=== PATIENT | male | born 1950 | race Caucasian/White ===

== ENCOUNTER 2019-07-16 14:11 | Outpatient (CLI) | payer BC, SELFPAY ==
[2019-07-16 15:35] LABS: Basophils Absolute Auto 0.1 K/mm3 (0.0-0.1); Eosinophils Absolute Auto 0.3 K/mm3 (0-0.3); Eosinophils Percent Auto 4.3 % (0-4.4); Hematocrit 44.9 % (42.0-52.0); Hemoglobin 14.8 g/dL (14.0-18.0); Immature Granulocyte Absolute 0.02 K/mm3 (0.00-0.031); Immature Granulocyte Percent A 0.3 % (0-0.5); Lymphocytes Absolute Auto 2.66 K/mm3 (0.9-3.2); Lymphocytes Percent Auto 33.6 % (18.3-44.2); Mean Corpuscular Hemoglobin 28.5 pg (26-34); Mean Corpuscular Volume 86.5 fl (80-100); Mean Platelet Volume 10.3 fl (7.4-10.4); Monocytes Absolute Auto 0.6 K/mm3 (0.1-0.6); Monocytes Percent Auto 7.7 % (2.6-8.5); Neutrophils Absolute Auto 4.2 K/mm3 (1.3-6.7); Neutrophils Percent Auto 53.1 % (45.5-73.1); Platelet Count Result 262 k/mm3 (150-375); Red Blood Count 5.19 M/mm3 (4.6-6.20); Red Cell Distribution Width 13.8 % (11.5-14.5); White Blood Count 7.9 K/mm3 (4.5-10.0)
[2019-07-16 15:44] LABS: Alanine Aminotransferase 42 U/L (4-50); Albumin Level 4.8 g/dL (3.5-5.1); Alkaline Phosphatase 79 U/L (38-126); Aspartate Amino Transferase 48 U/L (17-59); Bilirubin,Total 0.5 mg/dL (0.2-1.3); Blood Urea Nitrogen 17 mg/dL (9-20); Calcium 9.8 mg/dL (8.4-10.2); Carbon Dioxide 32 mmol/L (22-30); Chloride 99 mmol/L (98-107); Estimated Glomerular Filt Rate > 60; Glucose 88 mg/dL (75-110); Potassium 3.8 mmol/L (3.4-5.0); Sodium 142 mmol/L (137-145)
[2019-07-16 16:15] LABS: Prostate Specific Antigen 3.5 ng/mL (< OR = 4.0)
== END 2019-07-16 14:12 | disposition home or self-care (01) ==
PROVIDERS: PCP Family Medicine; Visit Provider Family Medicine
DX: I10 Essential (primary) hypertension (principal); E78.5 Hyperlipidemia, unspecified; I25.10 Atherosclerotic heart disease of native coronary artery without angina pectoris; Z12.5 Encounter for screening for malignant neoplasm of prostate
CPT/HCPCS: 36415; 80053; 84153; 84443; 85025; G0103

== ENCOUNTER 2020-01-06 00:16 | Outpatient (CLI) | payer BC, SELFPAY ==
[2020-01-06 16:41] LABS: SARS-CoV-2 RNA PCR Negative
== END 2020-01-06 00:17 | disposition home or self-care (01) ==
LOC: ANHCOVIDDT 00:17
PROVIDERS: PCP Family Medicine; Visit Provider Internal Medicine Cardiovascular Disease
DX: Z01.812 Encounter for preprocedural laboratory examination (principal); Z20.828 Contact with and (suspected) exposure to other viral communicable diseases
CPT/HCPCS: 87635; C9803; U0003

== ENCOUNTER 2020-01-08 05:15 | Day surgery (SDC) | payer BC, SELFPAY ==
[2020-01-06 16:11] VITALS: BMI 31.8
[2020-01-08] VITALS (8 sets, daily range): BP systolic 106–136; BP diastolic 61–89; PULSE 50–66; RESP 14–17; O2SAT 94–99; BMI 31.8
[2020-01-08 07:20] LABS: Basophils Absolute Auto 0.1 K/mm3 (0.0-0.1); Basophils Percent Auto 0.8 % (0.2-1.2); Eosinophils Absolute Auto 0.4 K/mm3 (0-0.3); Eosinophils Percent Auto 6.1 % (0-4.4); Hematocrit 43.7 % (42.0-52.0); Hemoglobin 14.4 g/dL (14.0-18.0); Immature Granulocyte Absolute 0.02 K/mm3 (0.00-0.031); Immature Granulocyte Percent A 0.3 % (0-0.5); Lymphocytes Absolute Auto 2.47 K/mm3 (0.9-3.2); Lymphocytes Percent Auto 37.4 % (18.3-44.2); Mean Corpuscular Hemoglobin 27.8 pg (26-34); Mean Corpuscular Volume 84.4 fl (80-100); Monocytes Absolute Auto 0.5 K/mm3 (0.1-0.6); Monocytes Percent Auto 7.9 % (2.6-8.5); Neutrophils Absolute Auto 3.1 K/mm3 (1.3-6.7); Neutrophils Percent Auto 47.5 % (45.5-73.1); Platelet Count Result 229 k/mm3 (150-375); Red Blood Count 5.18 M/mm3 (4.6-6.20); Red Cell Distribution Width 13.7 % (11.5-14.5); White Blood Count 6.6 K/mm3 (4.5-10.0)
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
[2020-01-08 07:31] LABS: Prothrombin Time 12.6 Seconds (11.1-14.7)
[2020-01-08 07:32] LABS: Blood Urea Nitrogen 18 mg/dL (9-20); Calcium 9.3 mg/dL (8.4-10.2); Carbon Dioxide 29 mmol/L (22-30); Chloride 102 mmol/L (98-107); Estimated CRCL calculation 69 ml/min; Estimated Glomerular Filt Rate > 60; Glucose 101 mg/dL (75-110); Potassium 4.1 mmol/L (3.4-5.0); Sodium 138 mmol/L (137-145)
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
--- NOTE | 2020-01-08 09:37 | WPDCARDPROC ---
Cardiac Cath Procedure Note Date of procedure:: 01/10/20 Performing physician:: Heavenly Mir MD Indication:: History of CAD insert Brief clinical history:: History of CAD an RCA stent in 2013 for ACS. Moderate disease of the OM1 was noted at that time. The patient has had progressive PATTON and exertional presyncope. He had a small area of mild to moderate inferolateral and apical lateral ischemia on a stress test recently. No typical anginal pain. Her for cardiac catheterization. Procedure Procedure performed:: PROCEDURE PERFORMED: 1. Left heart catheterization 2. Selective coronary angiography 3. Left ventriculography Estimated blood loss:: 5 cc Procedure note:: SITE: Left femoral artery ANESTHESIA TYPE: Conscious Sedation, 1% Lidocaine Local Anesthesia Conscious sedation: Assessment: The patient has no history of anesthesia problems. The patient's oropharynx is clear. The patient was deemed to be a good candidate for conscious sedation. The patient had continuous hemodynamic monitoring during the procedure. Start time: 908 Completion time: 928 Total conscious sedation time: 20 minutes Medications: Versed 2 mg IV push Trained observer: Emeka Root RN Outcome: The patient tolerated the procedure well with no complications. CATHETERS: 1. 5-German arterial sheath 2. 5-German 4 cm left Elvin 3. 5-German 3D RC 4. 5-German pigtail PROCEDURE: After informed consent, the patient was brought to the laborer shaft sinking, and the left femoral area was prepped and draped in usual fashion. The right femoral artery was anesthetized, then punctured and cannulated with the arterial sheath. Selective coronary angiography was performed with the coronary catheters in multiple projections. These were withdrawn. The pigtail catheter was then advanced into the central circulation and left ventricle for pressure measurements and left ventriculography, which was performed in the SETH projection with30 cc's of contrast. Left heart pullback was performed, and the pigtail catheter was withdrawn. Angiography of the right common femoral artery was performed and the sheath was in suitable position for a vascular closure device. Angio-Seal was applied,the arterial sheath was removed and hemostasis obtained using local pressure. The patient tolerated the procedure well with no complications. PRESSURES: Post angiographic aortic pressure was 110/60 and LV was 110 / 10 mmHg. LEFT CORONARY ARTERY: The left main was patent. There is some mild calcification of the proximal Left anterior descending and mild luminal irregularities noted. Otherwise the Left anterior descending was widely patent. The circumflex gave rise to a high OM1 which bifurcated very quickly after the origin. The ostium of the vessel had a 60-70% stenosis. The remainder of the circumflex is free of significant disease. RIGHT CORONARY ARTERY: The large dominant right coronary artery had a patent stent in the proximal segment. There was a mild luminal irregularity prior to the stent. The remainder of the vessel is free of disease. LEFT VENTRICULOGRAM: Normal left ventricular systolic function, EF 70% No mitral regurgitation The aorta was noted to be mildly tortuous with mild dilatation of the ascending aorta Findings:: 60-70% stenosis of the ostium of the OM1 which bifurcated proximally. This would be a difficult area for angioplasty/stent. Patent stent in the proximal RCA Mild luminal irregularities of the proximal RCA and Left anterior descending Nnormal left ventricular systolic function, EF 70% Conclusion:: Recommend continuing medical therapy for coronary disease. Isosorbide mononitrate added. Also may look for other causes of the patient's exertional dyspnea and presyncope (exertional hypoxia?)
--- NOTE | 2020-01-08 10:13 | SUR.PHASEII ---
0945-pt has returned from the [facility] after an LHC. Angioseal in place. No evidence of bleeding or hematoma noted. Groin soft and non-tender. Strong right pedal pulse noted. Will continue to monitor.
--- NOTE | 2020-01-08 12:31 | SUR.PHASEII ---
1220-pt given D/C orders and instructions. Questions answered and verbalized understanding. AOx4. Groin soft and non-tender, no evidence of bleeding or hematoma noted. Strong right pedal pulse noted. Taken via wheelchair to waiting vehicle. No distress noted or verbalized at time of departure.
== END 2020-01-08 12:25 | disposition home or self-care (01) ==
PROVIDERS: PCP Family Medicine; Visit Provider Internal Medicine Cardiovascular Disease
PROC: 4A023N7 Measurement of Cardiac Sampling and Pressure, Left Heart, Percutaneous Approach (ICD-10-PCS; CPT 93452; principal; 2020-01-08 08:30)
DX: I25.10 Atherosclerotic heart disease of native coronary artery without angina pectoris (principal); I77.819 Aortic ectasia, unspecified site; R94.39 Abnormal result of other cardiovascular function study; R06.09 Other forms of dyspnea; Z95.5 Presence of coronary angioplasty implant and graft; E78.5 Hyperlipidemia, unspecified; I10 Essential (primary) hypertension; I25.2 Old myocardial infarction; Z79.82 Long term (current) use of aspirin
CPT/HCPCS: 36415; 80048; 85025; 85610; 93458; C1760; C1887; C1894; G0269; J1644; J2250; J3010; J7040

== ENCOUNTER 2020-02-18 08:48 | Outpatient (CLI) | payer BC, SELFPAY ==
--- NOTE | ~2020-02-18 | XR_ITS ---
XR chest 2V 02/18/2020 09:14 Indication: Dyspnea with exertion. Procedure: 2 view chest Comparison: 05/07/2015 Findings: Bibasilar atelectasis. Heart size normal. No focal pneumonia, edema, pleural effusion or pn eumothorax. Impression: 1: Bibasilar atelectasis. Reviewed, dictated and finalized at location B. Impression: 1: Bibasilar atelectasis.
--- NOTE | 2020-02-20 10:55 | WPDPFTINT ---
PFT Interpretation PFT Interpretation: DOS: 02/18/2020 REQUESTING: Sara Jules NP REASON FOR TESTING: Dyspnea on exertion PULMONARY FUNCTION TESTS Results are reproducible and reliable. Spirometry: FEV1 77%, 2.19 L, mildly reduced. FVC 69%, mildly reduced. FEV1% ratio is 75%, normal. No bronchodilator was given. Lung volumes: Total lung capacity 76%, mildly reduced, consistent with restriction. Residual volume 65%, normal. Normal RV/TLC ratio. No air trapping. Airway resistance increased 192%. The slow vital capacity is 74% versus 69% forced vital capacity. This is a mild difference between these two values which suggests dynamic airway obstruction. Diffusion: DLCO mildly reduced 65%. Flow volume loop: Overall small size with scooping of the expiratory limb. IMPRESSION: Mild restrictive pattern based on reduced TLC. There is a possibility of mild obstruction based on slow vital capacity being larger than forced vital capacity. This is difficult to confirm as restriction can mask obstruction. Mild diffusion impairment. No bronchodilator was given. No prior studies for comparison. Lucia Pagan MD
== END 2020-02-18 08:49 | disposition home or self-care (01) ==
PROVIDERS: PCP Family Medicine; Visit Provider Nurse Practitioner Adult Health
DX: R06.00 Dyspnea, unspecified (principal); R94.2 Abnormal results of pulmonary function studies; R91.8 Other nonspecific abnormal finding of lung field
CPT/HCPCS: 71046; 94375; 94726; 94729

== ENCOUNTER 2020-09-18 07:09 | Outpatient (CLI) | payer BC, SELFPAY ==
[2020-09-18 07:41] LABS: Cholesterol 122 mg/dL (0-200); HDL Direct 28 mg/dL; Triglycerides 174 mg/dL (<150)
[2020-09-18 07:52] LABS: LDL Cholesterol Direct 61 mg/dL
[2020-09-18 08:12] LABS: Prostate Specific Antigen 3.6 ng/mL (< OR = 4.0)
[2020-09-18 08:47] LABS: Folic Acid > 20.0 ng/mL (2.76->20)
== END 2020-09-18 07:10 | disposition home or self-care (01) ==
PROVIDERS: PCP Physician Assistant; Visit Provider Physician Assistant
DX: E78.2 Mixed hyperlipidemia (principal); Z12.5 Encounter for screening for malignant neoplasm of prostate; I10 Essential (primary) hypertension
CPT/HCPCS: 36415; 80061; 82607; 82746; 84153; 84443; G0103

== ENCOUNTER 2021-03-25 12:47 | Outpatient (CLI) | payer BC, SELFPAY ==
--- NOTE | ~2021-03-25 | XR_ITS ---
XR abdomen/kub 1V 03/25/2021 13:03 INDICATION: Abdominal pain TECHNIQUE: KUB COMPARISON: Comparison to multiple prior studies sequentially, with oldest reviewed study dated 04/19. FINDINGS: No evidence of bowel obstruction. The psoas shadows are intact. No visceromegaly is detecte d. Status post bilateral total hip arthroplasty. There is severe degenerative disc disease throughout the lumbar and lumbosacral spine. The lung bases appear clear. There are bilateral total hip arthroplasties. There is moderate lumbar s pondylosis. IMPRESSION: Nonspecific abdomen Reviewed, dictated and finalized at location A. IMPRESSION: Nonspecific abdomen
== END 2021-03-25 12:48 | disposition home or self-care (01) ==
PROVIDERS: PCP Family Medicine; Visit Provider Physician Assistant
DX: R10.9 Unspecified abdominal pain (principal)
CPT/HCPCS: 74018

== ENCOUNTER 2022-08-24 09:27 | Outpatient (CLI) | payer BC, SELFPAY ==
[2022-08-24 10:58] LABS: Alanine Aminotransferase 34 U/L (6-50); Albumin Level 4.4 g/dL (3.5-5.1); Alkaline Phosphatase 83 U/L (38-126); Anion Gap 5 mmol/L (8-16); Aspartate Amino Transferase 39 U/L (17-59); Bilirubin,Total 0.6 mg/dL (0.2-1.3); Blood Urea Nitrogen 15 mg/dL (9-20); Carbon Dioxide 30 mmol/L (22-30); Chloride 100 mmol/L (98-107); Cholesterol 129 mg/dL (0-200); Estimated Glomerular Filt Rate > 60; Glucose 115 mg/dL (65-110); HDL Direct 31 mg/dL; Potassium 3.7 mmol/L (3.4-5.0); Sodium 135 mmol/L (137-145); Triglycerides 140 mg/dL (<150)
[2022-08-24 11:09] LABS: LDL Cholesterol Direct 61 mg/dL
== END 2022-08-24 09:28 | disposition home or self-care (01) ==
LOC: ANHLAB 09:28
PROVIDERS: PCP Family Medicine; Visit Provider Physician Assistant
DX: Z00.00 Encounter for general adult medical examination without abnormal findings (principal); Z13.1 Encounter for screening for diabetes mellitus; Z13.220 Encounter for screening for lipoid disorders
CPT/HCPCS: 36415; 80053; 80061

== ENCOUNTER 2023-01-31 09:28 | Outpatient (CLI) | payer BC, SELFPAY ==
--- NOTE | ~2023-01-31 | XR_ITS ---
Supine and upright views of the abdomen Clinical history: Abdominal pain COMPARISON: 03/25/2021 Findings: Bowel gas pattern is nonspecific. No evidence for obstruction or free air. No abnormal mass lesion or calcification is seen. Bilateral hip arthroplasties are again present. There is degenerati ve spondylosis of the lumbar spine, similar to prior exam. Impression: No acute abnormality is seen. Reviewed, dictated and finalized at location . Impression: No acute abnormality is seen.
[2023-01-31 10:19] LABS: Alanine Aminotransferase 34 U/L (6-50); Albumin Level 4.4 g/dL (3.5-5.1); Alkaline Phosphatase 70 U/L (38-126); Anion Gap 6 mmol/L (8-16); Aspartate Amino Transferase 41 U/L (17-59); Bilirubin,Total 0.7 mg/dL (0.2-1.3); Blood Urea Nitrogen 19 mg/dL (9-20); Calcium 9.6 mg/dL (8.4-10.2); Carbon Dioxide 32 mmol/L (22-30); Chloride 100 mmol/L (98-107); Estimated Glomerular Filt Rate > 60; Glucose 100 mg/dL (65-110); Potassium 3.7 mmol/L (3.4-5.0); Sodium 138 mmol/L (137-145)
== END 2023-01-31 09:29 | disposition home or self-care (01) ==
PROVIDERS: PCP Family Medicine; Visit Provider Physician Assistant Medical
DX: R10.9 Unspecified abdominal pain (principal); E78.2 Mixed hyperlipidemia
CPT/HCPCS: 36415; 74018; 80053

== ENCOUNTER 2023-05-22 16:22 | Outpatient (CLI) | payer BC, SELFPAY ==
[2023-05-22 17:01] LABS: Basophils Absolute Auto 0.1 K/mm3 (0.0-0.1); Eosinophils Absolute Auto 0.4 K/mm3 (0-0.3); Eosinophils Percent Auto 4.9 % (0-4.4); Hematocrit 43.4 % (42.0-52.0); Hemoglobin 13.6 g/dL (14.0-18.0); Immature Granulocyte Absolute 0.03 K/mm3 (0.00-0.031); Immature Granulocyte Percent A 0.4 % (0-0.5); Lymphocytes Absolute Auto 2.75 K/mm3 (0.9-3.2); Lymphocytes Percent Auto 33.4 % (18.3-44.2); Mean Corpuscular HGB Conc 31.3 g/dl (32-36); Mean Corpuscular Volume 86.3 fl (80-100); Mean Platelet Volume 9.4 fl (7.4-10.4); Monocytes Absolute Auto 0.7 K/mm3 (0.1-0.6); Neutrophils Absolute Auto 4.3 K/mm3 (1.3-6.7); Neutrophils Percent Auto 52.3 % (45.5-73.1); Platelet Count Result 276 k/mm3 (150-375); Red Blood Count 5.03 M/mm3 (4.6-6.20); Red Cell Distribution Width 14.7 % (11.5-14.5); White Blood Count 8.2 K/mm3 (4.5-10.0)
[2023-05-22 17:17] LABS: Rheumatoid Factor < 12.0 IU/ML (<12)
[2023-05-22 17:18] LABS: CRP < 0.5 mg/dL (<1.0)
[2023-05-22 17:27] LABS: Erythrocyte Sedimentation Rate 13 mm/hr (0-20)
[2023-05-24 13:08] LABS: Cyclic Citrullinated Peptide <16 Units (<20)
== END 2023-05-22 16:23 | disposition home or self-care (01) ==
PROVIDERS: PCP Family Medicine; Visit Provider Orthopaedic Surgery
DX: M25.531 Pain in right wrist (principal); M25.532 Pain in left wrist
CPT/HCPCS: 36415; 85025; 85652; 86038; 86140; 86200; 86430

== ENCOUNTER 2024-01-09 12:12 | Outpatient (CLI) | payer BC, SELFPAY ==
--- NOTE | ~2024-01-09 | XR_ITS ---
XR chest 2V 01/09/2024 12:31 Indication: Hemoptysis Procedure: 2 view chest Comparison: Comparison to multiple prior studies sequentially, with oldest reviewed study dated 02/2016. Findings: Bibasilar atelectasis. No focal air space disease, pulmonary edema, pleural effusion or louise pected pneumothorax. Heart size normal. No acute osseous abnormality. Impression: 1: Bibasilar atelectasis. Reviewed, dictated and finalized at location B. Impression: 1: Bibasilar atelectasis.
== END 2024-01-09 12:13 | disposition home or self-care (01) ==
LOC: ANHIMG 12:13
PROVIDERS: PCP Family Medicine; Visit Provider Student in an Organized Health Care Education/Training Program
DX: J98.11 Atelectasis (principal)
CPT/HCPCS: 71046